=== PATIENT | female | born 1955 | race Hispanic/Latino ===

== ENCOUNTER → 2017-12-30 | Outpatient (CLI) | payer OTHER | END | disposition home or self-care (01) | LOC: OIH 09:49 | PROVIDERS: ATTEND Internal Medicine | DX: I10 Essential (primary) hypertension (principal) | CPT/HCPCS: 71046 ==

== ENCOUNTER 2022-12-09 01:01 | Emergency (ER) | payer MEDICARE ==
[~2022-12-09] VITALS: Ht 160 cm; Wt 74.8 kg
[2022-12-09 01:25] LABS: APPEARANCE,URINE CLOUDY (CLEAR); BILIRUBIN,URINE NEGATIVE (NEGATIVE); COLOR,URINE DARK-YELLOW (YELLOW); GLUCOSE, URINE (UA) NEGATIVE (NEGATIVE); KETONES,URINE NEGATIVE (NEGATIVE); LEUKOCYTE ESTERASE ,URINE 500 Leu/uL (NEGATIVE); NITRATE,URINE NEGATIVE (NEGATIVE); OCCULT BLOOD,URINE LARGE (NEGATIVE); PH,URINE 5.5 (5.0-8.0); PROTEIN,URINE 10 mg/dL (NEGATIVE); UROBILINOGEN,URINE 0.2 mg/dL (0.2-1.0)
[2022-12-09 01:26] LABS: ADD UA MICROSCOPIC YES
[2022-12-09 01:29] LABS: BACTERIA,URINE RARE /HPF (None Seen); MUCUS,URINE RARE LPF (None Seen); SQUAMOUS EPITHELIAL CELL,UR RARE /HPF (0-2); WBC,URINE TNTC /HPF (0-1)
[2022-12-09] MEDS ORDERED: CEFTRIAXONE 1G VIAL IVPB ONE (02:00)
[2022-12-09] MEDS ORDERED: 0.9%NACL 1000ML 1,000 ML IV ONE (02:00)
[2022-12-09] MEDS ORDERED: CEFU500T67 PO (02:05)
[2022-12-09] MEDS ORDERED: PHEN-847 PO (02:05)
[2022-12-09] MEDS ORDERED: IBUPROFEN 800 MG TAB PO ONE (03:00)
[2022-12-09 03:36] VITALS: BP 128/64; PULSE 88; RESP 20; O2SAT 99
== END 2022-12-09 03:38 | disposition home or self-care (01) ==
LOC: EDH 01:01
DX: N39.0 Urinary tract infection, site not specified (principal); E78.00 Pure hypercholesterolemia, unspecified; E03.9 Hypothyroidism, unspecified; I10 Essential (primary) hypertension; Z88.0 Allergy status to penicillin
CPT/HCPCS: 99283; 96374; 87088; 81001; J7030; J0696

== ENCOUNTER → 2023-03-30 | Outpatient (CLI) | payer OTHER ==
[~2023-03-30] MED LIST: CEFU500T67 PO; PHEN-847 PO
== END | disposition home or self-care (01) ==
LOC: RAH 07:45
PROVIDERS: ATTEND Internal Medicine Cardiovascular Disease
DX: Z13.6 Encounter for screening for cardiovascular disorders (principal)
CPT/HCPCS: 75571

== ENCOUNTER → 2023-05-01 | Outpatient (CLI) | payer MEDICARE | END | disposition home or self-care (01) | LOC: SHCH 08:27 | PROVIDERS: ATTEND Internal Medicine Cardiovascular Disease | DX: I35.8 Other nonrheumatic aortic valve disorders (principal); I10 Essential (primary) hypertension; E78.5 Hyperlipidemia, unspecified | CPT/HCPCS: 93306 ==

== ENCOUNTER → 2023-05-20 | Outpatient (CLI) | payer MEDICARE ==
[~2023-05-20] MED LIST changes: +ALBUTEROL 0.083% 2.5 MG/3 ML INH IH ONE
== END | disposition home or self-care (01) ==
LOC: RESP 12:19
PROVIDERS: ATTEND Internal Medicine Cardiovascular Disease
DX: R06.02 Shortness of breath (principal)
CPT/HCPCS: 94060

== ENCOUNTER 2023-11-24 10:28 | Emergency (ER) | payer MEDICARE ==
[~2023-11-24] VITALS: Ht 160 cm; Wt 73.5 kg
[~2023-11-24 10:28] MED LIST changes: -ALBUTEROL 0.083% 2.5 MG/3 ML INH IH ONE
[2023-11-24 10:47] LABS: HEMATOCRIT 40.8 % (36-48); MEAN CORPUSCULAR HEMOGLOBIN 29.5 pg (27.0-33.0); MEAN CORPUSCULAR HGB CONC 33.1 g/dL (32.0-36.0); MEAN CORPUSCULAR VOLUME 89.3 fL (79-99); PLATELET COUNT (AUTO) 300 K/uL (130-400); RED BLOOD CELL COUNT(AUTO) 4.57 MIL/uL (4.00-5.50); WHITE BLOOD COUNT (AUTO) 5.6 K/uL (4.8-10.8)
[2023-11-24 10:57] LABS: CREATININE 0.9 mg/dL (0.5-1.0); POTASSIUM 4.1 mmol/L (3.5-5.1)
[2023-11-24 11:00] LABS: BASOPHILS # (AUTO) 0.04 K/uL (0.00-0.20); BASOPHILS % (AUTO) 0.7 % (0.0-5.0); EOSINOPHILS # (AUTO) 0.34 K/uL (0.00-0.70); EOSINOPHILS % (AUTO) 6.4 % (0.0-8.0); IMMATURE GRANULOCYTE ABSOLUTE 0.02 K/uL (0-1); LYMPHOCYTES # (AUTO) 1.3 K/uL (1.0-4.8); LYMPHOCYTES % (AUTO) 24.1 % (21.0-51.0); MONOCYTES # (AUTO) 0.4 K/uL (0.1-1.0); MONOCYTES % (AUTO) 7.9 % (3.0-13.0); NEUTROPHILS # (AUTO) 3.2 K/uL (1.8-7.7); NEUTROPHILS % (AUTO) 60.5 % (40.0-77.0)
[2023-11-24] MEDS: 0.9%NACL 1000ML 1,000 ML IV ONE (11:11)
[2023-11-24] MEDS: KETOROLAC 30MG VIAL (30MG/ML) IVP ONE (11:12)
[2023-11-24 11:20] LABS: APPEARANCE,URINE CLEAR (CLEAR); BILIRUBIN,URINE NEGATIVE (NEGATIVE); COLOR,URINE YELLOW (YELLOW); GLUCOSE, URINE (UA) NEGATIVE (NEGATIVE); KETONES,URINE NEGATIVE (NEGATIVE); LEUKOCYTE ESTERASE ,URINE 250 Leu/uL (NEGATIVE); NITRATE,URINE NEGATIVE (NEGATIVE); OCCULT BLOOD,URINE NEGATIVE (NEGATIVE); PH,URINE 5.5 (5.0-8.0); PROTEIN,URINE NEGATIVE (NEGATIVE); UROBILINOGEN,URINE 0.2 mg/dL (0.2-1.0)
[2023-11-24 11:22] LABS: ADD UA MICROSCOPIC YES
[2023-11-24 11:26] LABS: BACTERIA,URINE RARE /HPF (None Seen); MUCUS,URINE RARE LPF (None Seen); NON-SQUAMOUS EPITHELIAL CELL 1 /HPF (0-2); RBC,URINE 0-1 /HPF (0-1); SQUAMOUS EPITHELIAL CELL,UR FEW /HPF (0-2)
[2023-11-24] MEDS ORDERED: NITR100C4 PO (15:26)
[2023-11-24 15:33] VITALS: BP 138/74; PULSE 78; RESP 18; O2SAT 98
== END 2023-11-24 15:37 | disposition home or self-care (01) ==
LOC: EDH 10:28
DX: M54.50 Low back pain, unspecified (principal); E11.9 Type 2 diabetes mellitus without complications; I10 Essential (primary) hypertension; E03.9 Hypothyroidism, unspecified; Z88.0 Allergy status to penicillin
CPT/HCPCS: 99285; 74176; 96374; 96361; 80048; 85025; 87086; 81001; 36415; J1885

== ENCOUNTER → 2024-12-16 | Outpatient (CLI) | payer MEDICARE ==
[~2024-12-16] MED LIST changes: +IOHEXOL-350 75 ML VIAL IV ONE; +NITR100C4 PO
--- NOTE | 2024-12-24 10:37 | HMCIMG ---
INDICATION: Unspecified abdominal pain,Other chronic pain. COMPARISON: None. TECHNIQUE: After obtaining the patient's consent, CT images were created with oral contrast and and with non-ionic intravenous contrast material. Numerous low-radiation dose strategies were employed including AEC (Automatic Exposure Control) and individualized BMI-based low dose scan protocols. The exam was performed on a CT scanner that is compliant with the NEMA XR-29 Smart Dose Standard. DICOM Radiation Dose Structured Reporting capability and Dose Check Standard are also features of this scanner. RADIATION DOSE ESTIMATE: CTDIvol (mGy): 35.0 \ DLP (mGy-cm): 1677.60 FINDINGS: LOWER THORAX:Lung bases are clear. Normal cardiac size without pericardial effusion. LIVER: No focal hepatic abnormality. There is a cyst seen in the right lobe liver measuring 2 cm. There are other small less than a centimeter cysts scattered throughout the liver. BILIARY: No calcified gallstones No intra or extrahepatic biliary ductal dilatation. PANCREAS: Normal. No lesion, fluid collection, ductal dilatation, or acute inflammation. SPLEEN: Normal. No enlargement or focal lesion. STOMACH/DUODENUM: Unremarkable. ADRENALS: Normal. No mass or enlargement. KIDNEYS: Normal. No mass, obstruction, or nephrolithiasis. BOWEL/MESENTERY: Normal. No visible mass, obstruction, or bowel wall thickening. There are occasional diverticulosis mostly in the sigmoid colon with no evidence of diverticulitis. There is mild fecal stasis. AORTA/VASCULAR: No aneurysm. No atherosclerotic disease. PERITONEUM/RETROPERITONEUM: Normal. No mass, ascites or free air. LYMPH NODES: No pathologically enlarged lymph nodes. URINARY BLADDER: Normal. No visible focal wall thickening, lesion, or calculus. PELVIC ORGANS: The SCREEN ROLLER structures appears to be normal. There is no mass or free fluid seen in the pelvis. BONES: No acute osseous abnormality. There is severe disc disease seen at L1-L2 and L2-L3 with sclerotic endplate. ABDOMINAL WALL/SOFT TISSUES: Normal. No mass or hernia. IMPRESSION: No acute process seen in CT of abdomen and pelvis with and without intravenous contrast Severe osteophytic changes and disc disease seen at L1-L2 and L2-L3. Scattered diverticulosis most in sigmoid colon with no evidence of diverticulitis.
== END | disposition home or self-care (01) ==
LOC: RAH 10:16
PROVIDERS: ATTEND Physician Assistant
DX: K57.30 Diverticulosis of large intestine without perforation or abscess without bleeding (principal); R10.9 Unspecified abdominal pain; G89.29 Other chronic pain; K76.89 Other specified diseases of liver; M51.369 Other intervertebral disc degeneration, lumbar region without mention of lumbar back pain or lower extremity pain; M25.78 Osteophyte, vertebrae
CPT/HCPCS: 74178; Q9967